=== PATIENT | female | born 1935 | race Caucasian/White ===

== ENCOUNTER 2020-07-02 23:43 | Inpatient (IN) | payer MEDICARE, MEDICAID, SELFPAY ==
--- NOTE | ~2020-07-02 | XR_ITS ---
XR chest 2V DATE: 07/03/2020 00:09 INDICATION: Fever TECHNIQUE: AP and lateral views COMPARISON: 01/21/2019 AP and lateral chest 01/21/2019 CT pulmonary scan FINDINGS: Left-sided transvenous pacemaker device with leads overlying right atrium and right ventric le. Heart size appears within normal range. Is aortic calcification and unfolding. Mild bilateral apical capping. No pulmonary infiltrate or consolidation, pleural effusion or pulmonar y vascular congestion or pneumothorax. Diffuse osteopenia. Osteoarthritic change at the glenohumeral joint, particularly prominent on the le ft. IMPRESSION: No active cardiopulmonary disease Reviewed, dictated and finalized at location A. INATION EQUIPMENT OPERATOR
--- NOTE | ~2020-07-02 | US_ITS ---
EXAMINATION: US venous doppler [facility] DATE: 07/03/2020 16:40 INDICATION: Lower limb pain. TECHNIQUE: Grayscale ultrasound images without and with compression and Doppler ultrasound images of the bilateral lower extremity veins were obtained. COMPARISON: Ultrasound 01/22/2019 FINDINGS: The visualized portions of right common femoral vein, profunda (deep) femoral vein, femoral vein, pop liteal vein, peroneal veins, posterior tibial veins, and greater saphenous vein outflow are patent. The visualized portions of left common femoral vein, profunda femoral vein, femoral vein, popliteal v ein, peroneal veins, posterior tibial veins, and greater saphenous vein outflow are patent. IMPRESSION: 1. No deep venous thrombosis. Reviewed, dictated and finalized at location A. NT COACH
--- NOTE | ~2020-07-02 | CT_ITS ---
EXAMINATION: CT brain wo/w con DATE: 07/04/2020 04:53 INDICATION: Stroke. TECHNIQUE: Computed tomography (CT) of the head was performed without and with 100 mL Omnipaque 350 i ntravenous contrast. The mA was adjusted according to patient size. Iterative reconstruction techniqu e was employed. The dose-length product was 1362.00 mGy-cm. COMPARISON: None FINDINGS: There is encephalomalacia in right temporal lobe. There are changes of right-sided cranioto my. There are scattered areas of low attenuation in the cerebral white matter. There is no intracrani al hemorrhage, acute infarction, or abnormal intracranial mass lesion. There is ex vacuo dilatation o f temporal horn right lateral ventricle. There is mild mucosal thickening in the paranasal sinuses. T here are likely changes of ocular lens replacement surgeries. Hyperdense material has been injected i nto the left ocular globe. IMPRESSION: 1. 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 2. Extensive nonspecific cerebral white matter disease, which likely represents chronic small vessel ischemic disease. Reviewed, dictated and finalized at location A. LATORY ATTORNEY
[2020-07-02 23:45] VITALS: BP 153/86; PULSE 87; RESP 16; TEMP 37.8; O2SAT 97
[2020-07-03] VITALS (14 sets, daily range): BP systolic 90–136; BP diastolic 39–66; PULSE 66–84; RESP 12–22; TEMP 36.2–37.6; O2SAT 93–98; BMI 20.5
--- NOTE | 2020-07-03 00:14 | ED.FEVER ---
HPI - Fever General Chief Complaint: Fever Stated Complaint: elevated temp Time Seen by Provider: 07/02/20 23:54 Source: patient Limitations: no limitations History of Present Illness HPI Narrative: Patient is a 84-year-old female complaining of fever at home started tonight. Patient denies any headache, chest pain, shortness of breath, cough, abdominal pain, nausea, vomiting, diarrhea, or urinary symptoms. Related Data Home Medications Medication Instructions Recorded Confirmed carvedilol 07/03/20 furosemide 20 mg PO DAILY 07/03/20 levetiracetam PO 07/03/20 lisinopril 07/03/20 paroxetine HCl mg PO 07/03/20 Allergies Allergy/AdvReac Type Severity Reaction Status Date / Time Sulfa (Sulfonamide Allergy Unknown Rash Verified 01/21/19 20:03 Antibiotics) Review of Systems Review of Systems: All systems reviewed & are unremarkable except as noted in HPI and below Constitutional: Constitutional: Denies body ache(s), Denies excessive sweating, Denies fatigue, Denies headache(s), Denies lethargy, Denies malaise, Denies weakness and Denies weight loss Eyes: Eyes: Denies blurry vision, Denies change in vision and Denies loss of vision ENT: Denies dizziness, Denies ear discharge, Denies headache(s), Denies lip swelling, Denies epistaxis, Denies nasal congestion, Denies neck pain, Denies throat swelling and Denies tongue swelling Cardiovascular: Cardiovascular: Denies chest pain, Denies chest pain at rest, Denies chest pain with activity, Denies diaphoresis, Denies rapid heart rate, Denies edema, Denies irregular heart rhythm, Denies lightheadedness, Denies palpitations, Denies dyspnea and Denies dyspnea on exertion Respiratory: Respiratory: Denies chest congestion, Denies cough, Denies hemoptysis, Denies dyspnea and Denies dyspnea on exertion Gastrointestinal: Gastrointestinal: Denies abdominal pain, Denies melena, Denies hematochezia, Denies diarrhea, Denies nausea, Denies vomiting and Denies hematemesis Musculoskeletal: Musculoskeletal: Denies abnormal gait, Denies deformity, Denies joint swelling, Denies limited range of motion, Denies neck pain and Denies numbness Neurologic: Denies Abnormal speech present, Denies abnormal gait, Denies confusion, Denies dizziness, Denies headache(s), Denies focal weakness, Denies loss of vision, Denies numbness, Denies Other visual disturbances, Denies Sensory deficit (Neuro) and Denies weakness Psychiatric: Psychiatric: Denies confusion, Denies depression, Denies auditory hallucinations, Denies homicidal ideation and Denies suicidal ideation Endocrine: Endocrine: Denies cold intolerance, Denies excessive sweating, Denies fatigue, Denies heat intolerance and Denies palpitations Hematologic/Lymphatic: Hematologic/Lymphatic: Denies easy bleeding and Denies easy bruising Allergic/Immunologic: Allergic/Immunologic: Denies lip swelling, Denies throat swelling and Denies tongue swelling Exam Const: General: cooperative, healthy appearing, comfortable, no acute distress, well developed, alert and awake; No confusion Orientation/consciousness: oriented to person and oriented to place Limitations: no limitations HENMT: Head: normal to inspection, normocephalic and atraumatic Ears: hearing grossly normal bilaterally, TM normal on the right and TM normal on the left General nose exam: Normal external nose present, Normal nares present and No nasal discharge present Face and sinus: normal facial exam Mouth: Yes Normal oral and palatal mucosa present, Yes lip normal, Yes tongue normal and Yes oropharynx normal Throat: posterior oropharynx normal, tonsils normal and uvula midline Eyes: General: appearance normal, both eyes and all related structures Pupils: Equal, round and reactive pupils present EOM: EOMs intact bilaterally Neck: Neck: normal visual inspection, full ROM, no lymphadenopathy and no meningeal signs Chest: Chest palpation & inspection: normal inspection of the chest Resp: E
--- NOTE | 2020-07-03 00:36 | PC.NURSE ---
Per EDP Catrachito, do not give patient fluids. Patient has hx of CHF.
[2020-07-03 00:45] LABS: Add Urine Microscopic? YES; Appearance Urine Clear (Clear); Bacteria Urine Trace /hpf; Bilirubin Urine Negative (Negative); Blood Urine Negative (Negative); Color Urine Yellow (Yellow); Glucose Urine UA Negative (Negative); Ketones Urine Negative (Negative); Leukocyte Esterase Ur Negative LEU/UL (Negative); Mucus Urine Rare /lpf; Nitrate Urine Negative (Negative); Protein Urine 1+ mg/dL (Negative); Specific Grav Ur 1.018 (1.001-1.035); Squamous Epithelial Cell Urine Rare /hpf (Few)
[2020-07-03 00:49] LABS: INR 1.1
[2020-07-03 00:51] LABS: Partial Thromboplastin Time 35.5 SECONDS (22.3-36.8)
[2020-07-03 00:53] LABS: Alanine Aminotransferase 20 U/L (4-35); Albumin Level 3.3 g/dL (3.5-5.1); Alkaline Phosphatase 118 U/L (38-126); Anion Gap 8 mmol/L (8-16); Aspartate Amino Transferase 47 U/L (14-36); Bilirubin,Total 1.1 mg/dL (0.2-1.3); Blood Urea Nitrogen 14 mg/dL (7-17); Calcium 8.3 mg/dL (8.4-10.2); Carbon Dioxide 30 mmol/L (22-30); Chloride 102 mmol/L (98-107); Estimated CRCL calculation 44 ml/min; Estimated Glomerular Filt Rate > 60; Glucose 175 mg/dL (65-105); Potassium 2.9 mmol/L (3.4-5.0); Sodium 140 mmol/L (137-145)
--- NOTE | 2020-07-03 00:53 | PC.NURSE ---
Spoke to patient's daughter, Ariella, regarding patient care. Ariella states she intends to sign patient up for hospice tomorrow because she is weight now a days when she tries to stand and I don't believe in nursing homes. EDP Catrachito and ED charge nurse Jewell notified.
[2020-07-03 01:04] LABS: Basophils Percent Auto 0.2 % (0.2-1.2); Eosinophils Absolute Auto 0.1 K/mm3 (0-0.3); Eosinophils Percent Auto 0.9 % (0-4.4); Hematocrit 36.1 % (37.0-47.0); Hemoglobin 11.4 g/dL (12.0-15.0); Immature Granulocyte Absolute 0.04 K/mm3 (0.00-0.031); Immature Granulocyte Percent A 0.4 % (0-0.5); Lymphocytes Absolute Auto 1.32 K/mm3 (0.9-3.2); Lymphocytes Percent Auto 13.7 % (18.3-44.2); Mean Corpuscular HGB Conc 31.6 g/dl (32-36); Mean Corpuscular Hemoglobin 29.5 pg (26-34); Mean Corpuscular Volume 93.3 fl (80-100); Mean Platelet Volume 12.6 fl (7.4-10.4); Monocytes Absolute Auto 0.8 K/mm3 (0.1-0.6); Monocytes Percent Auto 8.1 % (2.6-8.5); Neutrophils Absolute Auto 7.4 K/mm3 (1.3-6.7); Neutrophils Percent Auto 76.7 % (45.5-73.1); Platelet Count Result 127 k/mm3 (150-375); Red Blood Count 3.87 M/mm3 (4.2-5.4); Red Cell Distribution Width 16.3 % (11.5-14.5); White Blood Count 9.6 K/mm3 (4.5-10.0)
[2020-07-03] MEDS: ACETAMINOPHEN 325 MG TABLET 650 MG PO (01:19)
[2020-07-03] MEDS: POTASSIUM CHLORIDE 20 MEQ PACKET (FOR LIQUID) 40 MEQ PO (01:20)
[2020-07-03] MEDS: levETIRAcetam Tablet 250 MG, levETIRAcetam Tablet 500 MG 750 MG PO (01:20)
--- NOTE | 2020-07-03 03:20 | ADMGEN ---
This patient, Kristin Nagel, was admitted to 3 [facility] Surg Room 306-01. Patient/family oriented to hospital policies and general routines including ID bracelet, bed and alarms, visiting hours, pain management, procedures, bathroom and other care routines, personal items, smoking policy, room service/diet, and visiting hours. Information on how to activate the Rapid Response Team has been discussed. Patient/Family are encouraged to report perceived risks to care and to ask questions if they do not understand what they are told or what they should do.
[2020-07-03 03:36] LABS: Reflex Lactic Acid Yes or No Add Lactic
[2020-07-03] MEDS: LACTATED RINGERS 1,000 ML 80 ML IV CONT (04:19)
[2020-07-03 06:50] LABS: Lactic Acid 1.5 mmol/L (0.7-2.1)
--- NOTE | 2020-07-03 09:22 | PM.IMHP ---
H&P: HPI History of Present Illness Date/Time: 07/03/20 09:22 Chief Complaint: Fever Narrative: Kristin Nagel is a 84 year old female with a PMH of dementia, CHF, HTN, Seizure disorder, depression, and a distant hx of a brain tumor who presented to the ED from home for complaints of high fever. Pt has dementia and unsure why she is in the hospital. I called the daughter, Ariella, who the patient lives with and left a message with her since she did not answer. All of this information is from the medical record. The triage note states the pt was brought in by EMR for high fevers and that the daughter wanted the patient looked at. The patient, who has dementia but is able to answer questions, is unsure why she is here but has no complaints today. She is in good spirits today and has no pain, cough, cp, nausea, vomiting, further fevers, diarrhea, constipation, SOB, change in vision or abdominal pain. She says both of her legs have been hurting when they are touched but no swelling or warmth. She is unsure if she has ever had a blood clot. She says she has a history of a brain tumor and her records from her PCP states this has been resected in the past. The report from her pcp office states that the pts daughter called in recently and talked to them about putting the pt on hospice due to increasing weakness and dementia. She says she is essentially bed bound. They had hospice lined up for this week but ended up in the ER instead. No other information is available. Review of Systems Review of Systems: All systems reviewed & are unremarkable except as noted in HPI and below PMFSH Past Medical History Medical History (Updated 07/03/20 @ 13:46 by Giselle Conte PA-C) Anxiety and depression Brain tumor CHF (congestive heart failure) Family history unobtainable Hypertension Normocytic anemia Seizure disorder Social History Social History (Updated 07/03/20 @ 13:43 by Giselle Conte PA-C) Social History: Further information is needed and I am waiting for a call back from the daughter. Until then, will do full code status since pt is unable to make decisions for herself. Smoking status: Never smoker Alcohol intake: never Substance use: never Spiritual care concerns: No Meds Home Medications and Allergies Home Medications Medication Instructions Recorded Confirmed Type carvedilol 12.5 mg PO BID 07/03/20 07/03/20 History furosemide 20 mg PO DAILY 07/03/20 07/03/20 History levetiracetam 750 mg PO BID 07/03/20 07/03/20 History lisinopril 10 mg PO DAILY 07/03/20 07/03/20 History paroxetine HCl 20 mg PO DAILY 07/03/20 07/03/20 History Allergies Allergy/AdvReac Type Severity Reaction Status Date / Time Sulfa (Sulfonamide Allergy Unknown Rash Verified 07/03/20 03:30 Antibiotics) Vital Signs Vital Signs - 24 hr 07/02/20 23:45 07/03/20 00:37 07/03/20 01:05 Temperature 100.1 F H 99.6 F Pulse Rate 87 84 Respiratory Rate 16 22 H Blood Pressure 153/86 H 123/65 Pulse Oximetry 97 96 07/03/20 01:53 07/03/20 03:08 07/03/20 03:20 Temperature 99.6 F 99.1 F 97.3 F L Pulse Rate 82 73 78 Respiratory Rate 18 12 16 Blood Pressure 127/62 115/58 L 124/54 L Pulse Oximetry 94 94 93 07/03/20 03:51 07/03/20 08:00 Temperature 97.3 F L 97.3 F L Pulse Rate 78 67 Respiratory Rate 16 18 Blood Pressure 124/54 L 136/66 Pulse Oximetry 93 94 Exam Narrative: Exam Narrative: General:Well developed well nourished patient HEENT: Normocephalic, atraumatic, PERRL, Sclerae anicteric, oral mucosa moist. Neck: Supple, no stiffness Resp: CTA Heart: RRR Abd: Soft, nontender. No pain to palpation. Positive bowel sounds Skin: Warm and dry Extremities: No swelling, erythema or rashes. Lower extremities slight pain to palpation bilaterally Neuro: Alert and Oriented to herself, birthday, location but unsure the president or year. CN 2-12 intact. No focal neurological deficits. H&P: Results Labs Labs: Short CBC
[2020-07-03 10:12] LABS: Anion Gap 4 mmol/L (8-16); Blood Urea Nitrogen 16 mg/dL (7-17); Calcium 7.6 mg/dL (8.4-10.2); Carbon Dioxide 30 mmol/L (22-30); Chloride 105 mmol/L (98-107); Estimated CRCL calculation 36 ml/min; Estimated Glomerular Filt Rate 53; Glucose 100 mg/dL (65-105); Magnesium 1.2 mg/dL (1.6-2.3); Potassium 3.1 mmol/L (3.4-5.0); Sodium 139 mmol/L (137-145)
[2020-07-03] MEDS: POTASSIUM CHLORIDE 20 MEQ TABLET 40 MEQ PO (12:01)
[2020-07-03] MEDS: carvediloL 12.5 MG TABLET PO ×2 (12:01→21:11)
[2020-07-03] MEDS: PARoxetine 20 MG TABLET PO (12:01)
[2020-07-03] MEDS: levETIRAcetam 250 MG TABLET 750 MG PO ×2 (12:01→21:14)
[2020-07-03] MEDS: FUROSEMIDE 20 MG TABLET PO (12:01)
[2020-07-03] MEDS: lisinopriL 10 MG TABLET PO (12:01)
[2020-07-03] MEDS: MAGNESIUM SULF 1 GM/D5W 100 ML 1 GM/100 ML BAG IVPB (12:02)
[2020-07-03] MEDS: MAGNESIUM SULF 2 GM/WATER 50ML 2 GM/50 ML BAG IVPB (13:07)
--- NOTE | 2020-07-03 17:47 | PC.NURSE ---
Patient's daughter Ariella has called 3 times today to request an update. I have explained to Ariella that staff will notify her when the covid test is resulted. I have also explained to Ariella that the plan of care has not changed since this morning and that there will be no further updates to provide until the physician rounds tomorrow. Ariella stated that she wants every scan available for her mother. I educated Ariella that the physician can only order scans based on what is appropriate for treatment.
[2020-07-03 18:11] LABS: SARS-CoV-2 RNA PCR Negative
[2020-07-04 06:00] VITALS: BP 145/58; PULSE 82; RESP 18; TEMP 36.9; O2SAT 92
[2020-07-04 07:48] LABS: Hematocrit 33.4 % (37.0-47.0); Hemoglobin 10.7 g/dL (12.0-15.0); Immature Platelet Fraction Pct 7.8 % (0.9-11.2); Mean Corpuscular Volume 93.6 fl (80-100); Mean Platelet Volume 12.6 fl (7.4-10.4); Platelet Count Result 119 k/mm3 (150-375); Red Blood Count 3.57 M/mm3 (4.2-5.4); Red Cell Distribution Width 16.2 % (11.5-14.5); White Blood Count 8.2 K/mm3 (4.5-10.0)
[2020-07-04 08:26] VITALS: PULSE 84
[2020-07-04] MEDS: FUROSEMIDE 20 MG TABLET PO (08:26)
[2020-07-04] MEDS: carvediloL 12.5 MG TABLET PO ×2 (08:26→19:51)
[2020-07-04] MEDS: lisinopriL 10 MG TABLET PO (08:27)
[2020-07-04] MEDS: PARoxetine 20 MG TABLET PO (08:27)
[2020-07-04] MEDS: levETIRAcetam 250 MG TABLET 750 MG PO ×2 (08:27→19:51)
[2020-07-04 11:49] VITALS: O2SAT 95
[2020-07-04 12:39] LABS: Alanine Aminotransferase 17 U/L (4-35); Alkaline Phosphatase 127 U/L (38-126); Anion Gap 9 mmol/L (8-16); Aspartate Amino Transferase 45 U/L (14-36); Bilirubin,Total 0.5 mg/dL (0.2-1.3); Blood Urea Nitrogen 23 mg/dL (7-17); CRP 2.1 mg/dL (<1.0); Carbon Dioxide 22 mmol/L (22-30); Chloride 112 mmol/L (98-107); Estimated CRCL calculation 40 ml/min; Estimated Glomerular Filt Rate 60; Glucose 108 mg/dL (65-105); Potassium 4.6 mmol/L (3.4-5.0); Sodium 143 mmol/L (137-145)
--- NOTE | 2020-07-04 12:58 | PM.IMPN ---
Progress Note: A&P Assessment and Plan (1) Fever: Code(s): R50.9 - Fever, unspecified Status: Acute Assessment and Plan: Patient admitted to the emergency room due to fever -on admission her fever was 100.1, no recurrence since -ER doctor has started ceftriaxone and azithromycin due to possible pneumonia -UA not suspicious for infection -COVID-19 PCR negative -chest x-ray officially read as normal but there could be possible infiltrate in the left lower lung -will likely discharge tomorrow (2) Pneumonia: Qualifiers: Laterality: unspecified laterality Lung location: unspecified part of lung Pneumonia type: due to unspecified organism Qualified Code(s): J18.9 - Pneumonia, unspecified organism Code(s): J18.9 - Pneumonia, unspecified organism Status: Acute Assessment and Plan: As stated above, the chest x-ray is suspicious for pneumonia in the left lower lobe although read as normal -continue ceftriaxone and azithromycin at this time (3) Acute hypokalemia: Code(s): E87.6 - Hypokalemia Status: Acute Assessment and Plan: Improved last potassium 4.6 -magnesium low as well, will start daily potassium (4) Hypertension: Code(s): I10 - Essential (primary) hypertension Status: Acute Assessment and Plan: Last blood pressure 145/58 -continue carvedilol, furosemide and lisinopril (5) Seizure disorder: Code(s): G40.909 - Epilepsy, unspecified, not intractable, without status epilepticus Status: Inactive Assessment and Plan: Chronic -she continue Keppra -Keppra level pending (6) Elevated lactic acid level: Code(s): R79.89 - Other specified abnormal findings of blood chemistry Status: Acute Assessment and Plan: Lactic acid elevated on admission, could be due to dehydration or possible infection -this has returned to normal -blood cultures no growth to date -continue IV antibiotics (7) Normocytic anemia: Code(s): D64.9 - Anemia, unspecified Status: Acute Assessment and Plan: Hemoglobin just slightly low at 10.7 -no signs of acute blood loss (8) Thrombocytopenia: Code(s): D69.6 - Thrombocytopenia, unspecified Status: Acute Assessment and Plan: Chronic and mild Additional Plan Patient's family requested head CT and to check for DVTs of the lower extremities. Both were negative for acute pathology Time Spent With Patient Time with patient: 25 - 35 minutes Subjective Date/time seen: 07/04/20 12:58 Interval history: Pt is a 84-year-old female here for fever and possible pneumonia. Patient was seen today and is confused but able to hold a conversation. She states she is doing well. Pt denies nausea, vomiting, fevers, chills, constipation, diarrhea, cough, chest pain, sob, or abdominal pain. I tried to call her daughter, Ariella who did not answer. Review of Systems Review of Systems: All systems reviewed & are unremarkable except as noted in HPI and below Exam Narrative: Exam Narrative: General:Well developed well nourished patient HEENT: Normocephalic, atraumatic, PERRL, Sclerae anicteric, oral mucosa moist. Neck: Supple, no stiffness Resp: CTA Heart: RRR Abd: Soft, nontender. No pain to palpation. Positive bowel sounds Skin: Warm and dry Extremities: No swelling, erythema or rashes. Lower extremities slight pain to palpation bilaterally Neuro: Alert and Oriented to herself, birthday, location but unsure the president or year. CN 2-12 intact. No focal neurological deficits. Objective Data Vital Signs Vital Signs: Vital Signs - 24 hr 07/03/20 16:00 07/03/20 19:02 07/03/20 20:00 Temperature 98.0 F Pulse Rate 66 76 Respiratory Rate 18 18 Blood Pressure 90/39 L 112/57 L Pulse Oximetry 96 96 07/03/20 21:11 07/03/20 22:00 07/04/20 06:00 Temperature 98.3 F 98.4 F Pulse Rate 76 76 82 Respirato
[2020-07-04 14:00] VITALS: BP 132/49; PULSE 73; RESP 20; TEMP 36.5; O2SAT 100
[2020-07-04] MEDS: MAGNESIUM OXIDE 200 MG TABLET PO (19:51)
[2020-07-04 22:00] VITALS: BP 142/58; PULSE 74; RESP 16; TEMP 36.6; O2SAT 99
[2020-07-05 06:00] VITALS: BP 149/74; PULSE 71; RESP 16; TEMP 36.5; O2SAT 94
[2020-07-05 06:55] LABS: Alanine Aminotransferase 16 U/L (4-35); Albumin Level 2.7 g/dL (3.5-5.1); Alkaline Phosphatase 106 U/L (38-126); Anion Gap 2 mmol/L (8-16); Aspartate Amino Transferase 46 U/L (14-36); Bilirubin,Total 0.7 mg/dL (0.2-1.3); Blood Urea Nitrogen 19 mg/dL (7-17); Calcium 8.4 mg/dL (8.4-10.2); Carbon Dioxide 30 mmol/L (22-30); Chloride 109 mmol/L (98-107); Estimated CRCL calculation 50 ml/min; Estimated Glomerular Filt Rate > 60; Glucose 80 mg/dL (65-105); Potassium 4.5 mmol/L (3.4-5.0); Sodium 141 mmol/L (137-145)
[2020-07-05 08:17] VITALS: PULSE 72
[2020-07-05] MEDS: carvediloL 12.5 MG TABLET PO (08:17)
[2020-07-05] MEDS: FUROSEMIDE 20 MG TABLET PO (08:18)
[2020-07-05] MEDS: levETIRAcetam 250 MG TABLET 750 MG PO (08:18)
[2020-07-05] MEDS: MAGNESIUM OXIDE 200 MG TABLET PO (08:18)
[2020-07-05] MEDS: lisinopriL 10 MG TABLET PO (08:18)
[2020-07-05] MEDS: PARoxetine 20 MG TABLET PO (08:19)
--- NOTE | 2020-07-05 09:07 | PM.DS ---
DS: Admitting Diagnosis Admitting Diagnosis Admitting Diagnosis: fever DS: Discharge Diagnosis Discharge Diagnosis (1) Fever: Code(s): R50.9 - Fever, unspecified Status: Acute Assessment and Plan: Patient admitted to the emergency room due to fever -on admission her fever was 100.1, no recurrence since -ER doctor has started ceftriaxone and azithromycin due to possible pneumonia -UA not suspicious for infection -COVID-19 PCR negative -chest x-ray officially read as normal but there could be possible infiltrate in the left lower lung -discharged on abx for possible PNA (2) Pneumonia: Qualifiers: Laterality: unspecified laterality Lung location: unspecified part of lung Pneumonia type: due to unspecified organism Qualified Code(s): J18.9 - Pneumonia, unspecified organism Code(s): J18.9 - Pneumonia, unspecified organism Status: Acute Assessment and Plan: As stated above, the chest x-ray is suspicious for pneumonia in the left lower lobe although read as normal -Pt given ceftriaxone and azithromycin during hospitalization and discharged on cefdinir and azithromycin. (3) Acute hypokalemia: Code(s): E87.6 - Hypokalemia Status: Acute Assessment and Plan: Improved last potassium 4.5 at discharge. (4) Hypertension: Code(s): I10 - Essential (primary) hypertension Status: Acute Assessment and Plan: Last blood pressure 149/74 -continue carvedilol, furosemide and lisinopril (5) Elevated lactic acid level: Code(s): R79.89 - Other specified abnormal findings of blood chemistry Status: Acute Assessment and Plan: Lactic acid elevated on admission, could be due to dehydration or possible infection -this has returned to normal -blood cultures no growth to date (6) Normocytic anemia: Code(s): D64.9 - Anemia, unspecified Status: Acute Assessment and Plan: Hemoglobin just slightly low at 10.7 -no signs of acute blood loss (7) Thrombocytopenia: Code(s): D69.6 - Thrombocytopenia, unspecified Status: Acute Assessment and Plan: Chronic and mild (8) Seizure disorder: Code(s): G40.909 - Epilepsy, unspecified, not intractable, without status epilepticus Status: Acute Assessment and Plan: Keppra level pending, will follow until finalized -no recent break through seizures DS: Summary Hospital Course Hospital Course: Patient is a 84-year-old female who presented emergency room due to running a fever at home. She did have a fever of 100.1 on admission. UA was not suspicious for UTI but my read on the CXR showed possible left lower PNA although it was read as normal. Pt was admitted to the hospitalist service and intially started on ceftriaxone and azithromycin. Her COVID was negative. She remained afebrile throughout her stay. The daughter wanted a CT of her head because she was confused lately although the PCP had been talking about dementia. She also wanted her legs checked for DVTs since they were painful at home. Both of these tests showed no acute pathology. The day of discharge the pt was in good spirits and had no complaints. I spoke to Ariella, daughter, about plan of care. She understands that she no longer needs to be acutely hospitalized and is ready for discharge. At this time because of her physical therapy needs, I recommend SNF due to her significant weakness. The patient's daughter states that prior, she was able to use a cane and she was not necessarily bed-bound until recently. She does have a history of polio so she has always had some issues ambulating. She also thinks she has dementia. She asked me if I would recommend hospice and at this time I told her it is up to her but I think SNF would be good for her if she wants to go for with that. She said because of the pandemic she does not want her to go to SNF. I understand
[2020-07-08 08:17] LABS: Levetiracetam Keppra 71.8 mcg/mL (12.0-46.0)
--- NOTE | 2020-07-17 09:02 | PC.NURSE ---
blood cx are negative
== END 2020-07-05 14:55 | disposition home or self-care (01) | DRG 195 ==
LOC: ANHED 07-03 01:32 → ANH3MEDSUR 07-03 02:59
PROVIDERS: Physician Assistant; Admitting Provider Internal Medicine; Emergency Provider Emergency Medicine; PCP Internal Medicine; Visit Provider Internal Medicine
DX: J18.9 Pneumonia, unspecified organism (principal); D69.6 Thrombocytopenia, unspecified; Z20.822 Contact with and (suspected) exposure to COVID-19; E87.6 Hypokalemia; I11.0 Hypertensive heart disease with heart failure; I50.9 Heart failure, unspecified; G40.909 Epilepsy, unspecified, not intractable, without status epilepticus; R79.89 Other specified abnormal findings of blood chemistry; D64.9 Anemia, unspecified; F03.90 Unspecified dementia, unspecified severity, without behavioral disturbance, psychotic disturbance, mood disturbance, and anxiety; F32.9 Major depressive disorder, single episode, unspecified; Z79.899 Other long term (current) drug therapy; Z88.2 Allergy status to sulfonamides
CPT/HCPCS: 36415; 51701; 70470; 71046; 80048; 80053; 80076; 80177; 81001; 83605; 83735; 84100; 85025; 85027; 85055; 85610; 85730; 86140; 87040; 93970; 96365; 96367; 97161; 97165; 99285; A9270; C9803; G0378; J0456; J0696; J3475; J7060; J7120; Q9967; U0003; U0005